=== PATIENT | female | born 1945 | race African-American/Black ===

== ENCOUNTER 2017-08-03 21:29 | Observation (INO) ==
[2017-08-03] MEDS ORDERED: 0.9 % Sodium Chloride 1,000 ML IVC ONE (22:03)
--- NOTE | 2017-08-03 22:06 | Emergency Department Note ---
Disposition Clinical Impression: Amaurosis fugax of right eye, Occlusion of right internal carotid artery Disposition: Admitted As Inpatient Condition: Good General Adult HPI - General Chief complaint: ED Neuro Symptoms/Deficit Stated complaint: rt eye vision change Time Seen by Provider: 08/03/17 21:39 Source: patient Limitations: no limitations Nursing Notes Reviewed: Yes Vital Signs Reviewed: Yes - History of Present Illness HPI Narrative: 72-year-old female who reports 2 episodes of changes in vision of the right eye today. She reports that this morning she had sudden onset of blurry vision of the right eye which resolved after an hour or 2. It then returned this evening and she went to a local urgent care who recommended she come to the emergency department for evaluation due to concern for stroke. She states that she is still having blurry vision in the right eye. She denies having any other symptoms. No changes in sensation or weakness or slurring of speech. She denies having history of strokes. She does have history of hypertension and diabetes. Pain Scale: 0 Consistency: constant, Improving Improves with: nothing Worsens with: nothing Associated symptoms: Reports: denies other symptoms Treatments Prior to Arrival: none - Related Data Home Medications Medication Instructions Recorded Confirmed Chlorthalidone 25 mg PO DAILY 08/04/17 08/04/17 Valsartan [Diovan] 320 mg PO DAILY 08/04/17 08/04/17 amLODIPine [Norvasc] 10 mg PO DAILY 08/04/17 08/04/17 hydrALAZINE [HydrALAZINE] 10 mg PO Q6HR 08/04/17 08/04/17 Allergies Allergy/AdvReac Type Severity Reaction Status Date / Time aspirin Allergy Rash Verified 08/03/17 20:23 All systems ED: reviewed and negative except as stated. Constitutional: Denies: fever Eyes: Reports: vision change Cardiovascular: Denies: chest pain Respiratory: Denies: cough Gastrointestinal: Denies: abdominal pain Integumentary: Denies: rash Neurological: Denies: headache, weakness Endocrine: Denies: fatigue Past Medical History - Past Medical History Medical history: Reports: diabetes, hypertension, other Psychiatric history: Reports: no psych history - Social History Smoking Status: Never smoker Smokeless Tobacco Status: No Alcohol use: Reports: none Drug use: Reports: none Physical Exam - General Limitations: no limitations General appearance: alert, appears intoxicated - Head Head exam: atraumatic - Eye Eye exam: Present: normal appearance, PERRL, EOMI. Absent: scleral icterus, conjunctival injection, nystagmus, miosis, periorbital tenderness - ENT ENT exam: normal exam, normal oropharynx - Neck Neck exam: Present: normal inspection - Chest Chest inspection: Present: normal inspection - Respiratory Respiratory exam: Present: normal lung sounds bilaterally. Absent: respiratory distress - Cardiovascular Cardiovascular exam: Present: regular rate, normal rhythm - Abdominal Exam Abdominal exam: Present: soft, Non-Tender - Extremities Exam Extremities exam: Present: normal inspection - Neurological Exam Neurological exam: Present: alert, oriented X3, CN II-XII intact, normal gait. Absent: motor sensory deficit, reflexes normal - Skin Skin exam: Present: warm, dry Course Course Narrative: She has had transient vision changes of the right eye. It is not in a specific field of vision. It is global. I do have concern for amaurosis fugax. Funduscopic exam was performed and the retinal vasculature appeared unremarkable. She is hypertensive but we will not immediately lower her blood pressure did concerned this may be from ischemia. Her NIH score is 0. As such no stroke alert is called. Her vision is 100% resolved. CT shows internal carotid occlusion but with collaterals. No neuro symptoms. Will admit for further workup. Vital Signs Temperature 97.6 F 08/03/17 21:33 Pulse Rate 81 08/03/17 21:33 Respiratory Rate 16 08/03/17 21:33 Blood Pressure 192/85 08/03/17 21:33 O2 Sat by Pulse Oximetry 97 08/03/17 21:33 Temperature 97.7 F 08/04/17 03:13 Pulse Rate 77 08/04/17 03:13 Respiratory Rate 16 08/04/17 03:13 Blood Pressure 174/91 08/04/17 03:13 O2 Sat by Pulse Oximetry 97 08/04/17 03:13 Oxygen Delivery Oxygen Delivery Room Air Medical Decision Making - Medical Records Medical records reviewed: Yes I reviewed the patient's medical records. - Lab Data Lab results reviewed: Yes I reviewed the patient's lab results. Result diagrams: 08/03/17 22:16 08/03/17 22:16 Lab Results 08/03/17 08/03/17 08/03/17 Range/Units 22:16 22:16 22:16 WBC 6.4 (4.3-11.1) K/mcL RBC 5.26 H (3.82-4.97) M/mcL Hgb 12.4 (11.5-15.4) g/dL Hct 38.8 (35.3-44.9) % MCV 73.8 L (83.0-100.0) fL MCH 23.6 L (28.0-33.3) pg MCHC 32.0 (31.6-35.5) g/dL RDW 14.9 H (11.5-14.5) % Plt Count 268 (140-400) K/mcL MPV 9.6 (9.4-12.4) fL Immature Gran % 0.3 (0-4) % Seg Neutrophils % 57.9 % Lymphocytes % 32.8 % Monocytes % 6.9 % Eosinophils % 1.6 % Basophils % 0.5 % Neutrophils # 3.7 (1.6-8.9) K/mcL Lymphocytes # 2.1 (0.6-4.6) K/mcL Monocytes # 0.4 (0.0-1.3) K/mcL Eosinophils # 0.1 (0.0-0.6) K/mcL Basophils # 0.0 (0.0-0.2) K/mcL PT 12.9 H (9.4-12.1) Seconds INR 1.2 APTT 30.7 (26.0-36.0) Seconds Sodium 140 (136-145) mEq/L Potassium 3.5 (3.5-4.5) mEq/L Chloride 101 (98-109) mEq/L Carbon Dioxide 26 (19-29) mEq/L BUN 15 (7-20) mg/dL Creatinine 0.89 (0.57-1.11) mg/dL Est GFR ( Amer) > 60 (> 60) Est GFR (Non-Af Amer) > 60 (> 60) BUN/Creatinine Ratio 17 (6-26) Glucose 140 H (70-99) mg/dL Calculated Osmolality 293 (280-300) Calcium 9.9 (8.6-10.8) mg/dL Troponin I (0-0.03) ng/mL 08/03/17 Range/Units 22:16 WBC (4.3-11.1) K/mcL RBC (3.82-4.97) M/mcL Hgb (11.5-15.4) g/dL Hct (35.3-44.9) % MCV (83.0-100.0) fL MCH (28.0-33.3) pg MCHC (31.6-35.5) g/dL RDW (11.5-14.5) % Plt Count (140-400) K/mcL MPV (9.4-12.4) fL Immature Gran % (0-4) % Seg Neutrophils % % Lymphocytes % % Monocytes % % Eosinophils % % Basophils % % Neutrophils # (1.6-8.9) K/mcL Lymphocytes # (0.6-4.6) K/mcL Monocytes # (0.0-1.3) K/mcL Eosinophils # (0.0-0.6) K/mcL Basophils # (0.0-0.2) K/mcL PT (9.4-12.1) Seconds INR APTT (26.0-36.0) Seconds Sodium (136-145) mEq/L Potassium (3.5-4.5) mEq/L Chloride (98-109) mEq/L Carbon Dioxide (19-29) mEq/L BUN (7-20) mg/dL Creatinine (0.57-1.11) mg/dL Est GFR ( Amer) (> 60) Est GFR (Non-Af Amer) (> 60) BUN/Creatinine Ratio (6-26) Glucose (70-99) mg/dL Calculated Osmolality (280-300) Calcium (8.6-10.8) mg/dL Troponin I 0.00 (0-0.03) ng/mL - Radiology Data Radiology results reviewed: Yes I reviewed the patient's radiology results. Angiography CT 08/04/17 00:01 IMPRESSION: 1. No evidence of acute infarct. 2. Occlusion of the right internal carotid artery at the skullbase with reconstitution of the terminal segment and otherwise normal intracranial arterial vasculature. D/ / Charles Gordon MD / Charles Gordon MD Interpreting Provider: Charles Gordon MD Orbit CT 08/04/17 00:01 IMPRESSION: No acute abnormality of the orbits. D/ / Christiano Ortiz MD / Christiano Ortiz MD Interpreting Provider: Christiano Ortiz MD - EKG Data EKG #1 EKG attestation: Yes I reviewed and interpreted this EKG. EKG shows normal: sinus rhythm Rate: normal Rhythm: NSR [place]/QRS: normal When compared to previous EKG there are: no significant changes Interpretation: no acute changes Attestation Statement - Attestation Attestation: I, Taj Fajardo MD, personally evaluated this patient and discussed their management with the resident physician. I reviewed the resident's note and agree with the documented findings, medical decision making, and plan of care. 72-year-old female presents to the emergency department with a complaint of an episode of blurred vision in her right eye earlier today which resolved on its own. The blurred vision return this evening and she went to an urgent care and was referred to the emergency department. On arrival here patient reported the blurred vision was improved but still present. Prior to admission she states the blurred vision has resolved. She denies any headache. No difficulty with speech or swallowing or balance. No focal numbness tingling or weakness. No headache. On examination patient is a well-developed well-nourished well-appearing elderly female in no acute distress. She is alert and oriented 3. There is no cyanosis or diaphoresis. HEENT normal. Neck supple and nontender with no lymphadenopathy and full range of motion. No carotid bruits noted. Breath sounds are clear and equal bilaterally. Heart regular rate and rhythm. Abdomen soft and nontender with normal bowel sounds. No gross focal neurological deficits. Labs reviewed. CTA of the head without and with contrast obtained and CT of the orbits. CT of the orbit showed no acute abnormality. CT of the head showed no acute intracranial hemorrhage. There was complete occlusion of the right internal carotid artery at the base of the skull with collateral circulation. The hospitalist, Dr. Jacobson, was consulted and accepted admission of the patient.
[2017-08-03 22:22] LABS: Basophils % 0.5 %; Eosinophils # 0.1 K/mcL (0.0-0.6); Eosinophils % 1.6 %; Hematocrit 38.8 % (35.3-44.9); Hemoglobin 12.4 g/dL (11.5-15.4); Immature Granulocytes % 0.3 % (0-4); Lymphocytes # 2.1 K/mcL (0.6-4.6); Lymphocytes % 32.8 %; Mean Corpuscular Hemoglobin 23.6 pg (28.0-33.3); Mean Corpuscular Volume 73.8 fL (83.0-100.0); Mean Platelet Volume 9.6 fL (9.4-12.4); Monocytes # 0.4 K/mcL (0.0-1.3); Monocytes % 6.9 %; Neutrophils # 3.7 K/mcL (1.6-8.9); Platelet Count 268 K/mcL (140-400); Red Blood Count 5.26 M/mcL (3.82-4.97); Red Cell Distribution Width 14.9 % (11.5-14.5); Segmented Neutrophils % 57.9 %
[2017-08-03 22:30] LABS: INR 1.2; Prothrombin Time 12.9 Seconds (9.4-12.1)
[2017-08-03 22:32] LABS: Activated Partial Thrombo Time 30.7 Seconds (26.0-36.0)
[2017-08-04 00:04] LABS: BUN/Creatinine Ratio 17 (6-26); Blood Urea Nitrogen 15 mg/dL (7-20); Calcium 9.9 mg/dL (8.6-10.8); Carbon Dioxide 26 mEq/L (19-29); Chloride 101 mEq/L (98-109); Glucose 140 mg/dL (70-99); Osmolality,Calculated 293 (280-300); Potassium 3.5 mEq/L (3.5-4.5); Sodium 140 mEq/L (136-145); eGFR For African Americans > 60 (> 60); eGFR For Non-African Americans > 60 (> 60)
[2017-08-04] MEDS ORDERED: Ondansetron 4 MG/2 ML VIAL IVP PRN (02:30)
[2017-08-04] MEDS ORDERED: *HR* HYDROcodone/Acet 5/325 mg TABLET PO PRN (02:30)
[2017-08-04] MEDS ORDERED: Acetaminophen 325 MG TABLET PO PRN (02:30)
[2017-08-04] MEDS ORDERED: Naloxone 0.4 MG/ML INJ IVP PRN (02:30)
--- NOTE | 2017-08-04 02:37 | Internal Med History&Physical ---
<Nelson Krishnan - Last Filed: 08/04/17 04:01> Date of Encounter: 08/04/17 Time of Encounter: 02:35 Assessment and Plan (1) Blurred vision, right eye Current visit: No Status: Acute - Transient, monocular vision loss starting this evening. Currently asymptomatic - Possible etiologies include amaurosis fugax vs TIA vs temporal arteritis - CTA in ED showed occlusion of right ICA with good collaterals. - Will begin stroke work up including MRI, Echo, lipid panel, start plavix (pt allergic to ASA- GI upset), atorvastatin 80 - Give prednisone 60mg Qday for concern of temporal arteritis. Needs to follow up with opthamologist outpatient for possible temporal artery bx - Labs pending including TSH, B12, VDRL, A1c for alternate etiologies - Neuro consult based on MRI results or return of symptoms. (2) HTN (hypertension) Current visit: Yes Status: Chronic Hypertensive in ED, possible due to anxiety - Will continue home amlodipine and chlorthaladone and hold hydralazine and valsartan in case of stroke conversion. - BP currently better controlled but still elevated at 168 systolic. - Should follow up with PCP as outpt for BP med management. Qualifiers: Hypertension type: essential hypertension Qualified Code(s): I10 - Essential (primary) hypertension (3) Occlusion of right internal carotid artery Current visit: Yes Status: Acute - As seen on CTA in ED - Good collateral circulation per report. - Will get stroke workup as above - Manage as outpatient if necessary (4) DVT prophylaxis Current visit: Yes Status: Acute Heparin 5000 units q12 Internal Medicine - H&P: HPI Admitted From: Emergency Dept Plans for Post Hospital Care: Home History of present illness: Ms. Biswas is a 72 year old female who presents to ED from urgent care with a complaint of right sided vision loss starting this evening. Pt states that she was watching football around 1700 when she experienced sudden onset complete visual loss in her right eye without pain. She is unsure how long the episode lasted, however it self resolved. She then had an identical episode around 1930 and decided to come to urgent care for evaluation. She has never experienced this before. She is asymptomatic at time of interview aside from minor central vision blurriness. She states she recently had a sore throat 2 weeks ago and has noticed some swelling in her right cheek. She admits to a history of migraines over 35 years ago. She denies any symptoms of chest pain, SOB, nausea , vomiting, headache, dizziness, fevers, chills. In ED, vital signs show HTN with BP in 190s systolic initially. She states she has been complaint with medications. Labs significant for ESR of 89, otherwise unremarkable. Head CTA and orbital CT show Occlusion of the right internal carotid artery at the skullbase with reconstitution of the terminal segment and otherwise normal intracranial arterial vasculature. No evidence of infarct. EKG NSR. Past Med Surg Social Fam HX - Past Medical History Medical history: diabetes ([place]. ), hypertension, other Psychiatric history: no psych history - Past Surgical History Surgical History: hysterectomy - Social History Smoking Status: Never smoker Smokeless Tobacco Status: No Alcohol use: none Drug use: none Occupational status: employed - Family History Father Hx Family Cardiac Disorders: Yes (CAD) Hx Family Endocrine Disorder: Yes (DM) Internal Medicine - H&P: Meds Chlorthalidone 25 mg PO DAILY 08/04/17 [History] Valsartan [Diovan] 320 mg PO DAILY 08/04/17 [History] amLODIPine [Norvasc] 10 mg PO DAILY 08/04/17 [History] hydrALAZINE [HydrALAZINE] 10 mg PO Q6HR 08/04/17 [History] 3 Allergy/AdvReac Type Severity Reaction Status Date / Time aspirin Allergy Rash Verified 08/03/17 20:23 All Systems PM: A 10-system review of systems was performed and is negative for pertinent findings except as documented above in the HPI. - Constitutional Constitutional: no chills, no fatigue, no fever(s), no weakness - EENT Eyes: blurry vision, change in vision, loss of vision, no discharge, no pain, no photophobia, no other visual disturbances Nose, mouth and throat: sinus pressure (right maxillary), no facial pain, no mouth pain, no odynophagia, no sore throat - Cardiovascular Cardiovascular ROS IM: no chest pain, no diaphoresis, no dyspnea, no dyspnea on exertion, no edema, no lightheadedness, no palpitations - Respiratory Respiratory: no cough, no dyspnea, no dyspnea on exertion - Gastrointestinal Gastrointestinal: no abdominal pain, no change in bowel habits, no constipation , no diarrhea, no nausea, no vomiting - Musculoskeletal Musculoskeletal ROS IM: no muscle weakness, no numbness, no tingling - Neurological Neurological ROS: loss of vision, no abnormal gait, no abnormal speech, no confusion, no dizziness, no focal weakness, no headache(s), no numbness, no tingling, no other visual disturbances - Constitutional Vitals: Temp Pulse Resp BP Pulse Ox 97.6 F 79 18 168/114 97 08/03/17 21:33 08/04/17 01:48 08/04/17 02:11 08/04/17 02:11 08/04/17 01:48 Exam: General: Vitals noted. No acute distress. AOx3 HEENT: Pupils reactive to light bilaterally, R slower than L. Pupils measuring 2mm b/l. No obvious abnormality on fundoscopic exam. Vision intact, peripheral asher intact. No obvious trauma. MMM. Oropharynx clear. No rope like temporal arteries. Cardiac: RRR, no mumurs, S1S2 Lungs: CTA bilaterally. No wheezes, rales, rhonci. Equal chest expansion. Neuro: NIH stroke scale 0. CNII-XII intact bilaterally. Moves all extremities. No focal deficits. Psych: appropriate mood and behavior. Internal Med - H&P Results - Labs CBC & Chem 7: 08/04/17 02:59 08/04/17 02:59 <Hui Jacobson - Last Filed: 08/04/17 04:37> Date of Encounter: 08/04/17 Assessment and Plan (1) Giant cell arteritis Current visit: Yes Status: Acute Given patient's age, symptoms of Amaurosis fugax and elevated ESR there is some concern for a possible GCA. Will start empiric prednisone. Consider Biopsy of temporal Artery Will need to have opthamology exam Internal Medicine - H&P: HPI History of present illness: Patient is moderate risk given age and presenting symptoms. Estimated LOS: less than 2 days. All Systems PM: A 10-system review of systems was performed and is negative for pertinent findings except as documented above in the HPI. - Constitutional Vitals: Temp Pulse Resp BP Pulse Ox 97.7 F 77 16 174/91 97 08/04/17 03:13 08/04/17 03:13 08/04/17 03:13 08/04/17 03:13 08/04/17 03:52 Internal Med - H&P Results - Labs CBC & Chem 7: 08/04/17 02:59 08/04/17 02:59 Labs: Short CBC 08/04/17 Range/Units 02:59 WBC 7.4 (4.3-11.1) K/mcL Hgb 12.4 (11.5-15.4) g/dL Hct 38.3 (35.3-44.9) % Plt Count 282 (140-400) K/mcL Neutrophils # 4.8 (1.6-8.9) K/mcL BMP 08/04/17 02:59 Sodium 140 Potassium 3.8 Chloride 103 Carbon Dioxide 26 BUN 13 Creatinine 0.80 Glucose 153 H Calcium 9.3 - Attending Attestation I was saw and examined the patient and discussed the plan with resident. I agree with findings and plan above and will also include possible GCA.
[2017-08-04 03:35] LABS: Basophils % 0.5 %; Eosinophils # 0.1 K/mcL (0.0-0.6); Hematocrit 38.3 % (35.3-44.9); Hemoglobin 12.4 g/dL (11.5-15.4); Immature Granulocytes % 0.4 % (0-4); Lymphocytes % 27.1 %; Mean Corpuscular HGB Conc 32.4 g/dL (31.6-35.5); Mean Corpuscular Hemoglobin 23.8 pg (28.0-33.3); Mean Corpuscular Volume 73.7 fL (83.0-100.0); Mean Platelet Volume 9.7 fL (9.4-12.4); Monocytes # 0.5 K/mcL (0.0-1.3); Monocytes % 6.4 %; Neutrophils # 4.8 K/mcL (1.6-8.9); Platelet Count 282 K/mcL (140-400); Red Cell Distribution Width 14.7 % (11.5-14.5); Segmented Neutrophils % 64.6 %
[2017-08-04 03:48] LABS: BUN/Creatinine Ratio 16 (6-26); Blood Urea Nitrogen 13 mg/dL (7-20); Calcium 9.3 mg/dL (8.6-10.8); Carbon Dioxide 26 mEq/L (19-29); Chloride 103 mEq/L (98-109); Glucose 153 mg/dL (70-99); Magnesium 1.6 mg/dL (1.6-2.6); Osmolality,Calculated 293 (280-300); Potassium 3.8 mEq/L (3.5-4.5); Sodium 140 mEq/L (136-145); eGFR For African Americans > 60 (> 60); eGFR For Non-African Americans > 60 (> 60)
[2017-08-04] MEDS: *HR* Heparin 5,000 UNIT/ML VIAL SQ SCH ×2 (04:52→17:37)
[2017-08-04 05:50] LABS: Hemoglobin A1C 6.6 %
[2017-08-04 05:53] LABS: Chol/HDL Ratio 5.4 (0-4.9)
[2017-08-04 06:15] LABS: Thyroid Stimulating Hormone 2.404 mcIU/mL (0.350-4.840)
[2017-08-04] MEDS: predniSONE 20 MG TABLET PO SCH (09:10)
[2017-08-04] MEDS: amLODIPine 5 MG TABLET PO SCH (09:11)
[2017-08-04] MEDS ORDERED: *HR* LORazepam 2 MG/ML VIAL ONE (13:33)
[2017-08-04] MEDS ORDERED: D5% in Water 1,000 ML IVC PRN (17:31)
[2017-08-04] MEDS ORDERED: Dextrose Gel 15 GM PO PRN ×2 (17:31)
[2017-08-04] MEDS ORDERED: *HR* Dextrose 50 % in Water (Syg) 50 ML SYRINGE IVP PRN (17:31)
--- NOTE | 2017-08-04 18:44 | Event Note ---
Date of Encounter: 08/04/17 Time of Encounter: 11:30 Pt admitted earlier today for vision loss. MRI negative for CVA. Seems better with steroids. Will continue.
[2017-08-04] MEDS ORDERED: Insulin LISPRO 300 UNITS/3 ML VIAL SQ SCH (21:00)
[2017-08-05 04:17] LABS: Hematocrit 33.4 % (35.3-44.9); Mean Corpuscular HGB Conc 32.3 g/dL (31.6-35.5); Mean Corpuscular Hemoglobin 23.7 pg (28.0-33.3); Mean Corpuscular Volume 73.4 fL (83.0-100.0); Mean Platelet Volume 10.1 fL (9.4-12.4); Platelet Count 265 K/mcL (140-400); Red Blood Count 4.55 M/mcL (3.82-4.97); Red Cell Distribution Width 14.8 % (11.5-14.5)
[2017-08-05 04:26] LABS: BUN/Creatinine Ratio 27 (6-26); Blood Urea Nitrogen 24 mg/dL (7-20); Carbon Dioxide 26 mEq/L (19-29); Chloride 103 mEq/L (98-109); Glucose 178 mg/dL (70-99); Magnesium 1.6 mg/dL (1.6-2.6); Osmolality,Calculated 296 (280-300); Potassium 3.7 mEq/L (3.5-4.5); Sodium 139 mEq/L (136-145); eGFR For African Americans > 60 (> 60); eGFR For Non-African Americans > 60 (> 60)
[2017-08-05 04:38] LABS: Hemoglobin 10.8 g/dL (11.5-15.4)
[2017-08-05] MEDS: *HR* Heparin 5,000 UNIT/ML VIAL SQ SCH (05:35)
[2017-08-05] MEDS: Insulin LISPRO 300 UNITS/3 ML VIAL SQ SCH ×2 (08:02→11:53)
[2017-08-05] MEDS: predniSONE 20 MG TABLET PO SCH (08:07)
[2017-08-05] MEDS: amLODIPine 5 MG TABLET PO SCH (08:07)
[2017-08-05 10:45] VITALS: BP 155/77
--- NOTE | 2017-08-05 13:42 | Discharge Summary ---
Date of Encounter: 08/05/17 Time of Encounter: 13:40 - Discharge Diagnosis (1) Temporal arteritis Priority: Primary Status: Suspected Comments: Will continue Prednisone. To see eye doctor today. (2) HTN (hypertension) Priority: Secondary Status: Chronic Qualifiers: Hypertension type: essential hypertension Qualified Code(s): I10 - Essential (primary) hypertension (3) Occlusion of right internal carotid artery Priority: Secondary Status: Chronic (4) Morbid obesity with BMI of 40.0-44.9, adult Priority: Secondary Status: Chronic - Discharge Medications Prescriptions: Atorvastatin [Lipitor] 40 mg PO HS #30 tablet predniSONE [PredniSONE] 60 mg PO DAILY #40 tablet Home Medications: Chlorthalidone 25 mg PO DAILY 08/04/17 [History] Valsartan [Diovan] 320 mg PO DAILY 08/04/17 [History] amLODIPine [Norvasc] 10 mg PO DAILY 08/04/17 [History] hydrALAZINE [HydrALAZINE] 10 mg PO Q6HR 08/04/17 [History] Atorvastatin [Lipitor] 40 mg PO HS #30 tablet 08/05/17 [Rx] predniSONE [PredniSONE] 60 mg PO DAILY #40 tablet 08/05/17 [Rx] Allergies/Adverse Reactions: 3 Allergy/AdvReac Type Severity Reaction Status Date / Time aspirin Allergy Rash Verified 08/03/17 20:23 Procedures/tests Complete & Pending: Procedures Performed prior 72 hours Category Date Time Status MR head/brain wo con [MR] Routine MRI 08/04/17 03:58 Completed ECG 12 lead ECG [ECG] Routine Y 08/03/17 21:49 Completed EV echocardiogram Routine Y 08/04/17 03:58 Completed Date of admission: 08/04/17 01:57 Primary care physician: Harika Samuels Discharging clinician: Maximino Hernandez Anticipated date of discharge: 08/05/17 - Patient Status Disposition: Home, Self-Care Condition: Good Functional capacity at discharge: independent ambulation Overall status at discharge: patient is progressing back to baseline - Discharge Instructions Follow Up With: Harika Shipman MD [Primary Care Provider] - (Follow up in 1-2 weeks.) - Diet and Activity Activity: increase activity as tolerated Diet: advance to your usual diet Hospital course: Ms. Biswas is a 72 year old female with hx of HTN presented to ED on 08/03 with complaints of vision loss in R eye. She stated she was at home and about 5PM she noticed some blurring in R eye. It improved but then recurred about 7PM. She went to urgent care and was sent to ED. In ED she was evaluated and placed in observation on 08/04 due to concern for amaurosis fugax/CVA. Ms Biswas was placed in observation on [facility]. CTA of head and neck showed chronic occlusion of R ICA with good collaterals. CT of orbit was negative. She was started on statin and Plavix. Her ESR was elevated at 89 and prednisone was started due to concern for temporal arteritis. MRI of brain did not show acute CVA. On 08/05 she continued to have visual deficit in center of vision - she described as a "flower - sometimes blue and sometimes purple." No pain associated with it. She was afebrile with stable vitals and was able to go to eye doctor office for further evaluation this afternoon. She was discharged in stable condition. - Time Spent with Patient Total time spent providing and/or coordinating discharge services: 38min - Constitutional Vitals: Temp Pulse Resp BP Pulse Ox 98.4 F 76 14 155/77 96 08/05/17 10:42 08/05/17 10:42 08/05/17 10:42 08/05/17 10:42 08/05/17 10:42 General appearance: Present: A&O X 3, pleasant, answers questions appropriately - Head Head exam: Present: normocephalic - Eye Eye exam: Present: EOMI, PERRL, conjuntiva pink - ENT ENT exam: Present: mucous membranes moist - Respiratory Respiratory exam: Present: CTAB. Absent: wheezes - Cardiovascular Cardiovascular exam: Present: RRR. Absent: tachycardia - GI/Abdominal GI/Abdominal exam: Present: soft. Absent: tenderness - Extremities Exam Extremities exam: Present: warm. Absent: tenderness - Neurological Exam Neurological exam: Present: alert, oriented X3, no focal deficits
--- NOTE | 2017-08-05 17:08 | Electrocardiograph Report ---
[place] [id number] Test Date: 2017-08-03 Pat Name: Kadie Biswas Department: 102 Room: 2NE22 Gender: F [employer] Teacher: Tad : 1945 Requested By: Maximino Hernandez Order Number: [id number] Reading MD: Radha Martini Measurements Intervals [place] Rate: 86 P: 14 MN: 185 QRS: 7 QRSD: 89 T: 49 QT: 385 QTc: 429 Interpretive Statements SINUS RHYTHM NONSPECIFIC T-WAVE ABNORMALITY Electronically Signed On 08-05-2017 17:06:49 EDT by Radha Martini
== END 2017-08-05 14:16 | disposition home or self-care (01) ==
LOC: 2NENU 21:29 → EMEROO 21:29 → SUATTDRO 08-04 01:57 → 2NENU 08-04 02:44
PROVIDERS: ADMIT Internal Medicine; ATTEND Internal Medicine